=== PATIENT | male | born 1955 | race Caucasian/White ===

== ENCOUNTER 2016-08-29 04:11 | Inpatient (IN) | payer SELFPAY ==
[~2016-08-29] VITALS: Ht 172.7 cm; Wt 101.1 kg
[2016-08-29] MEDS ORDERED: SODIUM CHLORIDE 0.9% 1,000 ML IV ONE (05:16)
[2016-08-29] MEDS ORDERED: MORPHINE SULFATE 4 MG/ML, 1ML IVPush PRN (05:30)
[2016-08-29] MEDS ORDERED: SODIUM CHLORIDE FLUSH 10ML SYR IVF ONE (05:30)
[2016-08-29] MEDS ORDERED: ASPIRIN 81 MG TABLET CHEW PO ONE (05:30)
[2016-08-29] MEDS ORDERED: NITROGLYCERIN SINGLE TAB 0.4 MG SL PRN (05:30)
[2016-08-29] MEDS ORDERED: ONDANSETRON 2MG/ML, 2ML IVPush ONE (05:30)
[2016-08-29] MEDS ORDERED: SODIUM CHLORIDE 0.9% 1,000ML IVBOLUS ONE (05:30)
[2016-08-29] MEDS ORDERED: NITROGLYCERIN SINGLE TAB 0.4 MG SL ONE (05:47)
[2016-08-29] MEDS ORDERED: MORPHINE SULFATE 4 MG/ML, 1ML ONE (05:47)
[2016-08-29 05:48] LABS: BLOOD UREA NITROGEN 14 mg/dL (7-18)
[2016-08-29] MEDS ORDERED: ASPIRIN 81 MG TABLET CHEW ONE (05:48)
[2016-08-29] MEDS ORDERED: ONDANSETRON 2MG/ML, 2ML ONE (05:48)
[2016-08-29 05:57] LABS: ASPARTATE AMINO TRANSFERASE 28 U/L (15-37); IS PT STATUS REG ER OR PRE ER? YES
[2016-08-29] MEDS ORDERED: SODIUM CHLORIDE FLUSH 10ML SYR IVF PRN (07:30)
[2016-08-29] MEDS ORDERED: METOPROLOL TARTRATE 25 MG TABLET PO SCH (08:00)
[2016-08-29] MEDS ORDERED: NITROGLYCERIN 0.4 MG BOTTLE (25 TABS) SL PRN (08:00)
[2016-08-29] MEDS ORDERED: POLYETHYLENE GLYCOL 17 GM PACKET PO PRN (08:00)
[2016-08-29] MEDS ORDERED: ONDANSETRON 2MG/ML, 2ML IVPush PRN (08:00)
[2016-08-29] MEDS ORDERED: TEMAZEPAM 15 MG CAPSULE PO PRN (08:00)
[2016-08-29] MEDS ORDERED: ASPIRIN 325 MG TABLET EC PO SCH (08:00)
[2016-08-29] MEDS ORDERED: ACETAMINOPHEN 325 MG TABLET PO PRN (08:00)
[2016-08-29] MEDS ORDERED: morphine SULFATE 10 MG/ML, 1ML IVPush PRN (08:00)
[2016-08-29] MEDS ORDERED: ENOXAPARIN 40 MG/0.4 ML SQ SCH (08:00)
[2016-08-29] MEDS ORDERED: HYDROcodone/APAP 5/325 TABLET PO PRN (08:00)
[2016-08-29] MEDS ORDERED: ENALAPRILAT 1.25 MG/ML, 2ML IVPush PRN (08:00)
[2016-08-29 08:13] VITALS: BP 176/93
[2016-08-29] MEDS ORDERED: LISINOPRIL 20 MG TABLET PO SCH (09:00)
[2016-08-29] MEDS ORDERED: PANTOPROZOLE 40MG TABLET PO SCH (09:00)
== END 2016-08-29 09:38 | disposition left against medical advice (07) | DRG 282 ==
LOC: ED 06:43 → EDIP 07:08 → 5SO 08:03
PROVIDERS: ATTEND Internal Medicine
DX: I21.3 ST elevation (STEMI) myocardial infarction of unspecified site (principal); I10 Essential (primary) hypertension; E66.01 Morbid (severe) obesity due to excess calories; Z68.33 Body mass index [BMI] 33.0-33.9, adult; Z80.0 Family history of malignant neoplasm of digestive organs
CPT/HCPCS: 36415; 71010; 80053; 81003; 83690; 84439; 84484; 85025; 93005; 96374; 96375; J2405; J7030

== ENCOUNTER 2016-08-31 05:36 | Emergency (ER) | payer SELFPAY ==
[~2016-08-31] VITALS: Ht 172.7 cm; Wt 104.7 kg
[2016-08-31] MEDS ORDERED: SODIUM CHLORIDE 0.9% 1,000 ML IV ONE (05:55)
[2016-08-31] MEDS ORDERED: SODIUM CHLORIDE FLUSH 10ML SYR IVF ONE (06:00)
[2016-08-31] MEDS ORDERED: ONDANSETRON 2MG/ML, 2ML IVPush ONE (06:00)
[2016-08-31] MEDS ORDERED: SODIUM CHLORIDE 0.9% 1,000ML IVBOLUS ONE ×2 (06:00→07:30)
[2016-08-31] MEDS ORDERED: MAALOX/HYOSCYAMINE/LIDOCAINE 45 ML BOTTLE PO ONE (06:00)
[2016-08-31] MEDS ORDERED: ASPIRIN 81 MG TABLET CHEW PO ONE (06:00)
[2016-08-31] MEDS ORDERED: ONDANSETRON 2MG/ML, 2ML ONE (06:32)
[2016-08-31] MEDS ORDERED: ASPIRIN 81 MG TABLET CHEW ONE (06:32)
[2016-08-31] MEDS ORDERED: MAALOX/HYOSCYAMINE/LIDOCAINE 45 ML BOTTLE ONE (06:32)
[2016-08-31 06:51] LABS: ASPARTATE AMINO TRANSFERASE 29 U/L (15-37); BLOOD UREA NITROGEN 14 mg/dL (7-18)
[2016-08-31 06:59] LABS: IS PT STATUS REG ER OR PRE ER? YES
[2016-08-31 08:06] VITALS: BP 165/93
== END 2016-08-31 09:03 | disposition home or self-care (01) ==
LOC: ED 05:56
DX: R07.89 Other chest pain (principal); R11.0 Nausea; I10 Essential (primary) hypertension
CPT/HCPCS: 36415; 71010; 80053; 81003; 83690; 84484; 85025; 93005; 96361; 96374; 99285; J2405; J7030